=== PATIENT | male | born 1965 | race Two or more races ===

== ENCOUNTER 2022-04-02 08:10 | Emergency (ER) | payer OTHER ==
[~2022-04-02] VITALS: Ht 167.6 cm; Wt 72.6 kg
[2022-04-02] MEDS ORDERED: ACET-1158 PO (12:22)
[2022-04-02] MEDS ORDERED: CEPH-509 PO (12:22)
[2022-04-02] MEDS: cefTRIAXone SOD 1,000 MG VL IM ONE (12:26)
[2022-04-02] MEDS: ONDANSETRON ODT 4 MG TAB PO ONE (12:26)
[2022-04-02] MEDS: TETANUS-DIPTH-ACEL PERTUSSIS 0.5ML SYR Tdap IM ONE (12:26)
[2022-04-02] MEDS: ACETAMINOPHEN/CODEINE#3 (300/30mg) TAB PO ONE (12:26)
[2022-04-02 13:27] VITALS: BP 136/78
[2022-04-02] MEDS: MORPHINE SULFATE INJ 2 MG/ml SYRG IM ONE (13:27)
== END 2022-04-02 13:18 | disposition home or self-care (01) ==
LOC: ER 08:10
DX: S01.01XA Laceration without foreign body of scalp, initial encounter (principal); X58.XXXA Exposure to other specified factors, initial encounter; Y93.89 Activity, other specified; Y92.89 Other specified places as the place of occurrence of the external cause; Y99.8 Other external cause status
CPT/HCPCS: 12002; 70450; 90471; 90715; 96372; 99284; J0696; J2270; Q0162